=== PATIENT | male | born 1955 | race Caucasian/White ===

== ENCOUNTER 2023-12-07 14:53 | Outpatient (CLI) | payer MEDICARE, MEDICAID | END 2023-12-07 23:59 | disposition home or self-care (01) | LOC: CARD DIAG 14:53 | PROVIDERS: ATTEND Student in an Organized Health Care Education/Training Program | DX: I08.8 Other rheumatic multiple valve diseases (principal); I89.0 Lymphedema, not elsewhere classified; I34.81 Nonrheumatic mitral (valve) annulus calcification; I25.3 Aneurysm of heart | CPT/HCPCS: 93306 ==